=== PATIENT | male | born 1945 | race Caucasian/White ===

== ENCOUNTER 2021-01-01 08:26 | Emergency (ER) | payer MEDICARE, OTHER ==
--- NOTE | 2021-01-01 08:41 | EDM.PDOC ---
ED HPI GENERAL MEDICAL PROBLEM - General Chief Complaint: Neuro Symptoms/Deficits Stated Complaint: DIZZY AND NOT COMPREHENDING FOR SHORT PERIOD Time Seen by Provider: 01/01/21 08:35 Source of Information: Reports: Patient History Limitations: Reports: No Limitations - History of Present Illness INITIAL COMMENTS - FREE TEXT/NARRATIVE: 75-year-old male presents to the ED in the accompaniment of his son. He states this morning while seated in the passenger side of a truck he started to develop blurred vision and had difficulty focusing. He had some high-pitched ringing and buzzing in his left ear. Associated development of mild nausea. I.e. motion sickness-like illness. Upon getting out of the vehicle he was walking like a drunk. Symptoms go away if he holds still. He appreciated marked trouble focusing his vision at the same time was experiencing vertigo symptoms. He denies headache. Nausea is better if he is not moving. He has not had such severe vertigo for many years. Of note the patient is a type II diabetic using Metformin for control. He has eaten this morning breakfast sandwich. Blood sugar in the ED was 284 at the bedside. He denies any recent changes to medications in the last month. He did have a left cataract extraction intraocular lens implant on , December 29. Feels that he can see quite well in this eye. Son had to assist him walking into the hospital due to him staggering and being off balance. He has not fallen. Symptoms started this morning with first onset while in a motor vehicle. Onset: Today, Sudden Onset Date: 01/01/21 Onset Time: 08:05 Duration: Minutes:, Intermittent Location: Reports: Other (Vertigo symptoms first appreciated well riding up as a passenger in a motor vehicle.) Quality: Reports: Other (Off balance feeling with "swimmy vision.") Severity: Moderate Improves with: Reports: Rest Worsens with: Reports: Movement (Symptoms recur with movement of the head or neck.) Context: Denies: Activity, Exercise, Lifting, Sick Contact, Trauma, Other Associated Symptoms: Reports: Nausea/Vomiting (Transient nausea associate with vertigo without vomiting), Other (Occultly walking due to being off balance). Denies: No Other Symptoms, Confusion, Chest Pain, Cough, cough w sputum, Fever/Chills, Headaches, Loss of Appetite, Rash, Shortness of Breath Treatments BLOCKER HEATED METAL FORMS: Reports: Other (see below) (He has not taken any thing other than his normal medications) - Related Data Allergies Allergy/AdvReac Type Severity Reaction Status Date / Time No Known Allergies Allergy Verified 01/01/21 08:55 Home Meds: Home Meds Meclizine [Antivert] 25 mg PO DAILY #15 tab 01/01/21 [Rx] Past Medical History HEENT History: Reports: Cataract (Had both cataracts out and intraocular lens implants.), Hard of Hearing (Mildly hard of hearing but does not wear hearing aids.), Other (See Below) (Patient does experience intermittent tinnitus) Cardiovascular History: Reports: Hypertension Respiratory History: Reports: COPD (Age-related. Quit smoking 30 years ago) Genitourinary History: Reports: BPH Musculoskeletal History: Reports: Osteoarthritis (Patient has had both knees and both shoulders replaced.) Endocrine/Metabolic History: Reports: Diabetes, Type II (For about 8 years. Controlled with Metformin and diet), Obesity/BMI 30+ Social & Family History - Tobacco Use Tobacco Use Status *Q: Former Tobacco User (Quit 30 years ago.) Tobacco Use Within Last Twelve Months: Snuff/Dip (Does chew tobacco. 10 will last about a week.) ED ROS GENERAL - Review of Systems Review Of Systems: See Below Constitutional: Reports: Fatigue. Denies: Fever, Chills, Malaise, Weakness, Decreased Appetite, Weight Loss HEENT: Reports: Glasses (Has not been wearing glasses since left cataract extraction carried out 3 days ago.) Respiratory: Reports: Shortness of Breath. Denies: Wheezing (On exertion at times.), Pleuritic Chest Pain, Cough, Sputum, Hemoptysis Cardiovascular: Reports: Blood Pressure Problem, Dyspnea on Exertion (Occasionally.). Denies: Chest Pain Endocrine: Reports: Other (Intermittent high and low sugars.) GI/Abdominal: Reports: Nausea (Nausea this morning associate with vertigo symptoms), Other (Occasional GERD and heartburn.). Denies: Diarrhea, Decreased Appetite, Difficulty Swallowing : Reports: Frequency, Other (Nocturia x2.) Musculoskeletal: Reports: Neck Pain, Shoulder Pain (Has limited range of motion of shoulders but has had bilateral total shoulders done with relief of pain), Back Pain (Chronic back pain due to spinal stenosis. Intermittent radiculopathy into his right buttock and posterior lateral right leg), Joint Pain (Occasional hip pain. Patient has had bilateral total knee replacements.) Skin: Reports: No Symptoms Neurological: Reports: Dizziness (Dizziness which we interpret his vertigo symptoms this morning.), Difficulty Walking (Associated with vertigo symptoms this morning feeling off balance walking like a drunk according to his son.). Denies: Paresthesia, Pre-Existing Deficit, Seizure, Syncope, Tingling, Weakness Psychiatric: Reports: No Symptoms Hematologic/Lymphatic: Reports: No Symptoms Immunologic: Reports: No Symptoms ED EXAM, DIZZINESS - Physical Exam Exam: See Below Exam Limited By: No Limitations General Appearance: Alert, WD/WN, Anxious, Mild Distress, Other (Temperature is currently 36.6 degrees. Heart rate was 70 and sinus. Respiratory to 16 with O2 sats of 98% room air. BP 159/65) Eye Exam: Right Eye: Nystagmus (Very mild sustained nystagmus on right lateral gaze.), Bilateral Eye: Normal Inspection (No blepharal pallor or scleral icterus), PERRL (Has had bilateral cataract extractions and intraocular lens implants.) Nystagmus: worsens with head to L, reproducible, reversible Ears: Normal TMs Throat/Mouth: Normal Inspection, Normal Lips, Normal Teeth, Normal Oropharynx Head Exam: Atraumatic, Normocephalic Vertigo: worsens with head to R Neck: Normal Inspection, Supple, Non-Tender, Full Range of Motion. No: Carotid Bruit, Lymphadenopathy (L), Lymphadenopathy (R) Respiratory/Chest: No Respiratory Distress, Lungs Clear, Normal Breath Sounds, No Accessory Muscle Use Cardiovascular: Normal Peripheral Pulses, Regular Rate, Rhythm, No Edema, No Gallop, No Murmur, No Rub GI/Abdominal: Normal Bowel Sounds, Soft, Non-Tender, No Organomegaly, No Abnormal Bruit, No Mass, Pelvis Stable Neurological: Alert, Normal Mood/Affect, Normal Dorsiflexion, CN II-XII Intact, Normal Plantar Flexion, No Motor/Sensory Deficits, Oriented x 3, Other (Cranial nerves II to XII intact. No pronator drift. Rapid alternating movements are normal.). No: Abnormal Finger to Nose, Abnormal Light Touch DTR: 1+: Bicep (R), Bicep (L), Patella (R), Patella (L) Back Exam: Normal Inspection. No: CVA Tenderness (L), CVA Tenderness (R) Extremities: Normal Inspection, Normal Range of Motion, Non-Tender, No Pedal Edema, Other (Bilateral total knee replacements. Has limited internal and external rotation of both hips) Psychiatric: Normal Affect Skin Exam: Warm, Intact, Normal Color, No Rash, Cool (Very cool to touch.) #1 Interpretation EKG Date: 01/01/21 Time: 08:57 Rhythm: NSR Rate (Beats/Min): 70 [place]: Normal P-Wave: Present (Borderline first-degree AV block left atrial hypertrophy pattern) QRS: Other (Nonspecific intraventricular conduction delay. There are Q waves in leads II, III and aVF consider old inferior wall myocardial infarction) ST-T: Other (Nonspecific T wave flattening aVL and lead III and lead V1.) QT: Normal EKG Interpretation Comments: Abnormal ECG Course - Vital Signs Last Recorded V/S: Last Vital Signs Temp 36.6 C 01/01/21 08:44 Pulse 70 01/01/21 08:44 Resp 16 01/01/21 08:44 BP 159/65 H 01/01/21 08:44 Pulse Ox 98 01/01/21 08:44 - Orders/Labs/Meds Orders: Active Orders 24 hr Category Date Time Status Sodium Chloride 0.9% [Normal Saline] 1,000 ml Med 01/01/21 08:45 Active IV ASDIRECTED Medication Orders Sodium Chloride (Normal Saline) 1,000 mls @ 100 mls/hr IV ASDIRECTED TERRY Last Admin: 01/01/21 09:08 Dose: 100 mls/hr Documented by: NAVA Labs: Laboratory Tests 01/01/21 01/01/21 01/01/21 Range/Units 08:38 08:45 08:45 WBC 6.23 (4.23-9.07) K/mm3 RBC 4.44 L (4.63-6.08) M/mm3 Hgb 15.4 (13.7-17.5) gm/dl Hct 43.7 (40.1-51.0) % MCV 98.4 H (79.0-92.2) fl MCH 34.7 H (25.7-32.2) pg MCHC 35.2 (32.2-35.5) g/dl RDW Std Deviation 44.0 H (35.1-43.9) fL Plt Count 239 (163-337) K/mm3 MPV 9.6 (9.4-12.3) fl Neut % (Auto) 58.8 (34.0-67.9) % Lymph % (Auto) 31.1 (21.8-53.1) % Carson % (Auto) 7.5 (5.3-12.2) % Eos % (Auto) 1.8 (0.8-7.0) Baso % (Auto) 0.6 (0.1-1.2) % Neut # (Auto) 3.66 (1.78-5.38) K/mm3 Lymph # (Auto) 1.94 (1.32-3.57) K/mm3 Carson # (Auto) 0.47 (0.30-0.82) K/mm3 Eos # (Auto) 0.11 (0.04-0.54) K/mm3 Baso # (Auto) 0.04 (0.01-0.08) K/mm3 PT 10.5 (9.7-12.0) SECONDS INR 0.98 Sodium (136-145) mEq/L Potassium (3.5-5.1) mEq/L Chloride (98-107) mEq/L Carbon Dioxide (21-32) mEq/L Anion Gap (5-15) BUN (7-18) mg/dL Creatinine (0.7-1.3) mg/dL Est Cr Clr Drug Dosing mL/min Estimated GFR (MDRD) (>60) mL/min BUN/Creatinine Ratio (14-18) Glucose (70-99) mg/dL POC Glucose 224 H (70-99) mg/dL Hemoglobin A1c ( - 5.6) % Calcium (8.5-10.1) mg/dL Magnesium (1.8-2.4) mg/dL Total Bilirubin (0.2-1.0) mg/dL AST (15-37) U/L ALT (16-63) U/L Alkaline Phosphatase (46-116) U/L CK-MB (CK-2) (0-3.6) ng/ml Troponin I (0.00-0.056) ng/mL C-Reactive Protein (<1.0) mg/dL NT-Pro-B Natriuret Pep (0-450) pg/mL Total Protein (6.4-8.2) g/dl Albumin (3.4-5.0) g/dl Globulin gm/dL Albumin/Globulin Ratio (1-2) TSH 3rd Generation (0.358-3.74) uIU/mL 01/01/21 01/01/21 01/01/21 Range/Units 08:45 08:45 08:45 WBC (4.23-9.07) K/mm3 RBC (4.63-6.08) M/mm3 Hgb (13.7-17.5) gm/dl Hct (40.1-51.0) % MCV (79.0-92.2) fl MCH (25.7-32.2) pg MCHC (32.2-35.5) g/dl RDW Std Deviation (35.1-43.9) fL Plt Count (163-337) K/mm3 MPV (9.4-12.3) fl Neut % (Auto) (34.0-67.9) % Lymph % (Auto) (21.8-53.1) % Carson % (Auto) (5.3-12.2) % Eos % (Auto) (0.8-7.0) Baso % (Auto) (0.1-1.2) % Neut # (Auto) (1.78-5.38) K/mm3 Lymph # (Auto) (1.32-3.57) K/mm3 Carson # (Auto) (0.30-0.82) K/mm3 Eos # (Auto) (0.04-0.54) K/mm3 Baso # (Auto) (0.01-0.08) K/mm3 PT (9.7-12.0) SECONDS INR Sodium 138 (136-145) mEq/L Potassium 4.0 (3.5-5.1) mEq/L Chloride 103 (98-107) mEq/L Carbon Dioxide 24 (21-32) mEq/L Anion Gap 15.0 (5-15) BUN 16 (7-18) mg/dL Creatinine 1.2 (0.7-1.3) mg/dL Est Cr Clr Drug Dosing 60.11 mL/min Estimated GFR (MDRD) 59 (>60) mL/min BUN/Creatinine Ratio 13.3 L (14-18) Glucose 223 H (70-99) mg/dL POC Glucose (70-99) mg/dL Hemoglobin A1c 6.9 H ( - 5.6) % Calcium 8.9 (8.5-10.1) mg/dL Magnesium 1.9 (1.8-2.4) mg/dL Total Bilirubin 0.4 (0.2-1.0) mg/dL AST 21 (15-37) U/L ALT 36 (16-63) U/L Alkaline Phosphatase 62 (46-116) U/L CK-MB (CK-2) 0.8 (0-3.6) ng/ml Troponin I < 0.017 (0.00-0.056) ng/mL C-Reactive Protein <0.2 (<1.0) mg/dL NT-Pro-B Natriuret Pep 12 (0-450) pg/mL Total Protein 6.8 (6.4-8.2) g/dl Albumin 3.5 (3.4-5.0) g/dl Globulin 3.3 gm/dL Albumin/Globulin Ratio 1.1 (1-2) TSH 3rd Generation 3.923 H (0.358-3.74) uIU/mL Meds: Medications Generic Name Dose Route Start Last Admin Trade Name Freq PRN Reason Stop Dose Admin Sodium Chloride 1,000 mls @ 100 mls/hr 01/01/21 08:45 01/01/21 09:08 Normal Saline IV 100 mls/hr ASDIRECTED TERRY Administration Discontinued Medications Generic Name Dose Route Start Last Admin Trade Name Freq PRN Reason Stop Dose Admin Metoclopramide HCl 10 mg 01/01/21 08:42 01/01/21 09:08 Metoclopramide 10 Mg/2 Ml Sdv IVPUSH 01/01/21 08:43 10 mg ONETIME ONE Administration - Radiology Interpretation Free Text/Narrative:: 75-year-old male presents to the ED in the accompaniment of his son. He has bee n up for some time this morning and had no problems. While riding in as a passenger and 1/2 ton truck with his son driving he developed vertigo symptoms feeling very dizzy offkilter and cannot focus his vision. He had some concerned it was related to his recent cataract extraction intraocular lens implant in the left side done on . December 29. However symptoms are compatible with vertigo with feeling off balance particularly walking into the hospital. When he holds still he has no symptoms. Neuro exam is also completely normal. Plan IV normal saline at 100 mils per hour. Blood sugar at the bedside was 284. Routine labs ordered including troponin. He will be given Reglan 10 mg IV to stabilize his balance mechanism. - Re-Assessments/Exams Free Text/Narrative Re-Assessment/Exam: 01/01/21 10:11White count is normal at 6.23. Differential is 59% neutrophils. Hemoglobin is 15.4 with hematocrit of 43.7. MCV slightly elevated at 98.4. Platelet count is 239,000 PT is 10.5 with an INR of 0.98. Sodium 138 with a potassium of 4.0. Chloride 103 with a bicarb of 24. Anion gap is 15.0. BUN is 16 with a creatinine of 1.2 and a GFR of 59. Glucose is 223 bedside it was 224. Hemoglobin A1c is excellent at 6.9. Calcium is 8.9 with a magnesium of 1.9. Liver function is normal. CK-MB fraction is 0.8 troponin I is less than 0.017. C-reactive protein is less than 0.2. BNP is 12 with a total protein of 6.8 and an albumin fraction of 3.5 TSH is slightly elevated at 3.923 with normal in our lab up to 3.74. Departure - Departure Time of Disposition: 10:46 Disposition: Home, Self-Care 01 Condition: Fair Clinical Impression: Benign paroxysmal positional vertigo of left ear - Discharge Information *PRESCRIPTION DRUG MONITORING PROGRAM REVIEWED*: Not Applicable *COPY OF PRESCRIPTION DRUG MONITORING REPORT IN PATIENT ORION: Not Applicable Prescriptions: Meclizine [Antivert] 25 mg PO DAILY #15 tab Referrals: Jose Elias George MD [Primary Care Provider] - Forms: ED Department Discharge Additional Instructions: Evaluation in the emergency room this morning in regards to acute onset of vertigo which is a sensation of the room spinning and feeling offkilter associated with difficulty focusing her vision. Symptoms improve at rest. Neuro exam reveals no signs of stroke. Clinically it appears that the left sided vestibular apparatus is not working normally. You were treated with intravenous Reglan 10 mg with some fluids. This improved the vertigo and you were able to walk in the emergency room without feeling dizzy or lightheaded or vertiginous. You will need to continue medication called Antivert 25 mg tablet every 8 hours for the next 5 days to keep vertigo symptoms under control. If not markedly improved in 5 to 7 days time you should be reviewed. First tablet should be taken at noon today. Follow-up with personal care physician if any further problems occur. Sepsis Event Note (ED) - Focused Exam Vital Signs: Vital Signs Temp Pulse Resp BP Pulse Ox 01/01/21 08:44 36.6 C 70 16 159/65 H 98 - My Orders Last 24 Hours: My Active Orders 01/01/21 08:45 Sodium Chloride 0.9% [Normal Saline] 1,000 ml IV ASDIRECTED - Assessment/Plan Last 24 Hours: My Active Orders 01/01/21 08:45 Sodium Chloride 0.9% [Normal Saline] 1,000 ml IV ASDIRECTED
[2021-01-01] MEDS ORDERED: Metoclopramide 10 MG/2 ML SDV IVPUSH ONE (08:42)
[2021-01-01] MEDS ORDERED: Sodium Chloride 0.9% 1,000 ML IV SCH (08:45)
[2021-01-01 09:46] LABS: HEMOGLOBIN A1C 6.9 %
== END 2021-01-01 11:03 | disposition home or self-care (01) ==
LOC: JD.ED 08:26
DX: H81.12 Benign paroxysmal vertigo, left ear (principal); I10 Essential (primary) hypertension; J44.9 Chronic obstructive pulmonary disease, unspecified; E11.9 Type 2 diabetes mellitus without complications; M19.90 Unspecified osteoarthritis, unspecified site; I44.0 Atrioventricular block, first degree; E66.9 Obesity, unspecified; Z68.32 Body mass index [BMI] 32.0-32.9, adult; Z87.891 Personal history of nicotine dependence; Z79.899 Other long term (current) drug therapy; R06.02 Shortness of breath
CPT/HCPCS: 36415; 80053; 82553; 82947; 83036; 83735; 83880; 84443; 84484; 85025; 85610; 86140; 93005; 96374; 99284; J2765; J7030; 93010; 99283